=== PATIENT | female | born 1980 | race Two or more races ===

== ENCOUNTER 2017-12-15 15:20 | Emergency (ER) | payer OTHER ==
[~2017-12-15] VITALS: Ht 167.6 cm; Wt 67.1 kg
[2017-12-15] MEDS ORDERED: PRENATAL TABLE1 EAC2 PO (16:01)
== END 2017-12-16 00:05 | disposition home or self-care (01) ==
LOC: ER 15:20
DX: K29.70 Gastritis, unspecified, without bleeding (principal); R11.11 Vomiting without nausea

== ENCOUNTER → 2021-09-02 | Outpatient (CLI) | payer OTHER ==
[~2021-09-02] MED LIST: PRENATAL TABLE1 EAC2 PO
== END | disposition home or self-care (01) ==
LOC: RAD 15:51
PROVIDERS: ATTEND Physical Medicine & Rehabilitation
DX: M17.11 Unilateral primary osteoarthritis, right knee (principal); M17.12 Unilateral primary osteoarthritis, left knee